=== PATIENT | female | born 1990 | race Caucasian/White ===

== ENCOUNTER 2017-01-22 09:53 | Emergency (ER) | payer OTHER ==
[~2017-01-22] VITALS: Ht 170.2 cm; Wt 70.5 kg
[2017-01-22 09:57] VITALS: BP 104/71; PULSE 90; RESP 12; O2SAT 98
--- NOTE | 2017-01-22 10:18 | ED.REPORT ---
HPI-URI / Cough / Cold Date of Service Jan 22, 2017 ED Provider: Greta Martell MD A 26 year old female with a history of frequent strep throat presents to the ED complaining of a sore throat. The throat pain has been present for 3 days, and the pt has noticed increasing tonsillar and lymph node swelling and throat redness. She is also experiencing fever, abdominal pain, nausea, ear pain and dysuria. These symptoms began after she swam in a river. The pt is also concerned because she has been having unprotected sexual intercourse with a new partner. She denies vaginal sores or discharge. The pt has been treating her symptoms with ibuprofen. Nursing Notes Stated Complaint: SORE THROAT/POSS UTI Chief Complaint: General Complaint Nursing Notes Reviewed: Yes Allergies: Coded Allergies: Penicillins (Verified Allergy, Intermediate, Rash,Itching,, 01/23/16) TAPE (Verified Allergy, Intermediate, Rash, 01/23/16) Scheduled Cephalexin (Cephalexin) 750 Mg Capsule 750 MG PO TID Scheduled PRN Hydrocodone-Acetaminophen 5-300 mg (Hydrocodone-Acetaminophen 5-300 mg) 1 Each Tablet 1 TABLET PO Q4H PRN PRN For Pain General Time Seen by MD: 10:16 Chief Complaint Sore throat Hx Obtained From: Patient Arrived By: Walk-in Onset Occurred: 3 days ago Symptom Duration: Since onset Recent Healthcare: No recent doctor visit, No recent hospitalization Similar Sx Previous: No Past Medical History Past Medical History frequent strep throat frequent tonsillitis Past Surgical History none reported Family History Reports: Diabetes mellitus, Hypertension Smoking History Never Smoker Social History Alcohol Use: Denies alcohol use Drug Use: Denies drug use Ambulatory Status Independent Review of Systems Review of Systems Note: tonsillar and lymph node swelling throat redness denies vaginal sores Constitutional: Reports: Fever Ears / Nose / Throat: Reports: Earache bilateral Respiratory: Denies: Non-productive cough, Shortness of breath GI: Reports: Abdominal pain, Nausea, Denies: Vomiting Skin: Denies Rash Complete sys rev & neg: except as marked. Female: Reports: Dysuria, Denies: Vaginal discharge Physical Exam Initial Vital Signs Vital Signs (First) Date Time Temp Pulse Resp B/P Pulse Ox O2 Delivery O2 Flow Rate FiO2 01/22/17 09:57 37.0 90 12 104/71 98 Room Air Initial VS: Reviewed General/Constitutional: Awake, Alert ENT: Airway patent, Mucous membranes moist, No peritonsillar abscess tonsillar swelling with exudates Respiratory / Chest: Atraumatic, Breath sounds NL, Breath sounds = bilat, No respiratory distress Head / Eyes: Atraumatic, Normocephalic, PERRL, EOMI Neck: Atraumatic, Supple, Full range of motion bilateral cervical adenopathy Cardiovascular: Heart rate NL, Regular rhythm, Heart sounds NL Abdomen: Atraumatic, Soft, Non-tender Skin: Atraumatic, Color NL, No rash, Warm, Dry Neurologic: Oriented X3, Speech NL, No motor deficits, No sensory deficits Back: Atraumatic, Full range of motion, No CVA tenderness Upper Extremity / MS: Atraumatic, Full range of motion Lower Extremity / Pelvis / MS: Atraumatic, Full range of motion Psychiatric: Affect NL, Mood NL Interpretation & Diagnostics Lab Results Interpretation Result Diagram: 01/22/17 1050 01/22/17 1050 Test 01/22/17 10:50 01/22/17 11:09 White Blood Count 11.2th/mm3 (3.8-10.1) Red Blood Count 4.72mil/mm3 (3.90-5.20) Hemoglobin 14.2g/dL (12.0-15.6) Hematocrit 42.4% (35.0-46.0) Mean Corpuscular Volume 89.8fL (81-100) Mean Corpuscular Hemoglobin 30.1pg (27.0-35.0) Mean Corpuscular Hemoglobin Concent 33.5% (32.0-37.0) Red Cell Distribution Width 13.4% (12.3-15.4) Platelet Count 213bil/L (150-400) Neutrophils (%) (Auto) 69.6% (40-74) Lymphocytes (%) (Auto) 20.1% (14-46) Monocytes (%) (Auto) 9.1% (4-12) Eosinophils (%) (Auto) 0.8% (0-5) Basophils (%) (Auto) 0.2% (0-3) Sodium Level 140mEq/L (134-144) Potassium Level 4.1mEq/L (3.5-5.2) Chloride Level 103mEq/L (97-108) Carbon Dioxide Level 23mmol/L (18-29) Blood Urea Nitrogen 11mg/dL (6-20) Creatinine 0.77mg/dL (0.57-1.00) Estimat Glomerular Filtration Rate 130mL/min (>59) Glucose Level 96mg/dL (60-99) Calcium Level 9.9mg/dL (8.5-10.1) Total Bilirubin 0.3mg/dL (0.0-1.2) Aspartate Amino Transf (AST/SGOT) 14U/L (0-50) Alanine Aminotransferase (ALT/SGPT) 11U/L (0-32) Alkaline Phosphatase 92U/L (25-150) Total Protein 7.9g/dL (6.4-8.4) Albumin 4.4g/dL (3.4-5.0) Hold [place] Top Tube Received (Received) Monoscreen Negative (Negative) Urine Color Yellow (YELLOW) Urine Appearance Hazy (CLEAR,HAZY) Urine pH 6.0 (5.0-8.0) Urine Specific [place] 1.030 (1.003-1.035) Urine Protein Tracemg/dL (NEG,TRACE) Urine Glucose (UA) Negativemg/dL (NEGATIVE) Urine Ketones Negativemg/dL (NEGATIVE) Urine Occult Blood Negative (NEGATIVE) Urine Nitrite Negative (NEGATIVE) Urine Bilirubin Negative (NEGATIVE) Urine Urobilinogen Normalmg/dL (NORMAL) Urine Leukocyte Esterase Trace (NEGATIVE) Urine RBC 0-2/hpf (0-2) Urine WBC 6-10/hpf (0-5) Urine Epithelial Cells Occasional/hpf (NONE-MOD) Urine Crystals None seen (NONE SEEN) Urine Bacteria Few/hpf (NONE-FEW) Urine Hyaline Casts None/lpf (NONE) Urine Granular Casts None seen (NONE SEEN) Urine Waxy Casts None seen (NONE SEEN) Urine Red Blood Cell Casts None seen (NONE SEEN) Urine White Blood Cell Casts None seen (NONE SEEN) Urine Mucus Present (None Seen) Urine Trichomonas None seen (NONE SEEN) Urine Yeast None (NONE SEEN) Urinalysis Comment None Urine Culture Reflexed Indicated Lab Results Interpretation: rapid strep negative mono spot negative Re-Eval/Medical Decision Source of Hx: Old records Re-Evaluation/Progress : Time of Eval: 11:52 Patient Status: Condition improved Re-Evaluation/Progress Note: Pt rechecked, whose condition has improved following medications. The diagnosis and plan for discharge are discussed. The pt understands and agrees with the plan. All questions are addressed at this time. Counseled Regarding: Diagnosis, Lab results, Need for follow-up, When/why to return to ED Discharge & Departure Impression: Primary Impression: Pharyngitis Pharyngitis/tonsillitis etiology: unspecified etiology Qualified Code: J02.9 - Acute pharyngitis, unspecified Additional Impression: UTI (lower urinary tract infection) Disposition: Home Discharge Condition All VS Reviewed: Yes Condition: Stable Patient Instructions: Pharyngitis (ED), Urinary Tract Infection in Women (ED) Additional Instructions: Thank you for allowing us to be a part of your care. Your throat exam suggests a bacterial infection, just not strep. You also have a bladder infection. Take Keflex three times daily for 7 days. This should be effective for both issues. Take 1 Vicodin every 6 hours for severe pain. You can also use 800mg Ibuprofen every 8 hours for moderate pain. Call your primary care physician to arrange a follow up appointment this week. Return to the emergency department if you develop any new or worsening symptoms. I hope you feel better soon! Referrals: Rey Colon MD (PCP) Carol Attestation Portions of this note were transcribed by Mayo Casanova. I, Dr. Martell personally performed the history, physical exam and medical decision-making; I reviewed and confirmed the accuracy of the information in the transcribed note. Signed by: Carol Fairbanks, 01/22/2017 and 1225. copies to: Rey Colon MD, Shawna L MD Jan 22, 2017 10:18 MAYO CASANOVA Jan 22, 2017 10:28
[2017-01-22] MEDS ORDERED: HYDROcodone-APAP 5-325 mg Tablet PO ONE (10:35)
[2017-01-22 11:00] LABS: BASOPHILS % (AUTO) 0.2 % (0-3); EOSINOPHILS % (AUTO) 0.8 % (0-5); MONOCYTES % (AUTO) 9.1 % (4-12); Mean Corpuscular Hemoglobin 30.1 pg (27.0-35.0); Mean Corpuscular Volume 89.8 fL (81-100); NEUTROPHILS % (AUTO) 69.6 % (40-74); Platelet Count 213 bil/L (150-400)
[2017-01-22 11:30] LABS: APPEARANCE,URINE HAZY (CLEAR,HAZY); COLOR,URINE YELLOW (YELLOW); OCCULT BLOOD,URINE NEGATIVE (NEGATIVE); UROBILINOGEN,URINE NORMAL (NORMAL)
[2017-01-22] MEDS ORDERED: HYDR-3090 PO (12:11)
[2017-01-22] MEDS ORDERED: CEPH750C7 PO (12:11)
[2017-01-22 12:31] VITALS: BP 120/81; PULSE 75; RESP 14; O2SAT 100
[2017-01-22 12:43] VITALS: BP 120/81; PULSE 75; RESP 14; O2SAT 100
== END 2017-01-22 12:43 | disposition home or self-care (01) ==
LOC: SED 09:53
DX: J02.9 Acute pharyngitis, unspecified (principal); N39.0 Urinary tract infection, site not specified; Z88.0 Allergy status to penicillin